=== PATIENT | female | born 1990 | race African-American/Black ===

== ENCOUNTER 2023-02-19 05:45 | Inpatient (IN) | payer OTHER ==
[2023-02-19] MEDS ORDERED: CITRIC ACID/SODIUM CITRATE 30 ML UNIT-DOSE CUP PO ONE (06:25)
[2023-02-19] MEDS ORDERED: ELECTROLYTE-148 SOLN 500 ML IV SCH ×2 (06:25→06:55)
[2023-02-19 06:37] VITALS: BMI 47.2
[2023-02-19] MEDS ORDERED: morphine SULFATE/PF 1 MG/2 ML (2cc Syringe - QUVA) ONE (08:12)
[2023-02-19] MEDS ORDERED: FENTANYL CITRATE/PF 50 MCG/ML VIAL ONE (08:12)
[2023-02-19] MEDS ORDERED: PROPOFOL 20 ML ONE (08:14)
[2023-02-19] MEDS ORDERED: ePHEDrine SULFATE 50 MG/1 ML AMPULE ONE (08:57)
[2023-02-19] MEDS: OXYTOCIN 20 UNITS in 0.9% NS 20 UNIT/1,000 ML INFUS.BAG IV SCH (09:30)
[2023-02-19] MEDS ORDERED: morphine SULFATE/PF 1 MG/2 ML (2cc Syringe - QUVA) EP ONE (09:55)
[2023-02-19] MEDS ORDERED: ACETAMINOPHEN 1000 MG/100 ML BAG IVPB ONE (09:56)
[2023-02-19] MEDS ORDERED: SIMETHICONE 80 MG TAB.CHEW (FP) PO PRN (10:03)
[2023-02-19] MEDS ORDERED: IBUPROFEN 600 MG TABLET (FP) PO PRN (10:03)
[2023-02-19] MEDS ORDERED: IBUPROFEN 800 MG/8 ML IJ IVPB PRN (10:03)
[2023-02-19] MEDS ORDERED: ACETAMINOPHEN 325 MG TABLET (FP) PO PRN (10:03)
[2023-02-19] MEDS ORDERED: SENNOSIDES/DOCUSATE COMBO (SENNA PLUS) TABLET (UD) PO PRN (10:03)
[2023-02-19] MEDS ORDERED: ACETAMINOPHEN 1000 MG/100 ML BAG IVPB PRN (10:07)
[2023-02-19] MEDS ORDERED: DEXTROSE 5%-LACTATED RINGERS 1,000 ML IV SCH (10:15)
[2023-02-19] MEDS ORDERED: OXYTOCIN 20 UNITS in 0.9% NS 20 UNIT/1,000 ML INFUS.BAG IV ONE (10:47)
[2023-02-19] MEDS ORDERED: ONDANSETRON 4 MG/2 ML VIAL ONE (11:46)
[2023-02-19] MEDS ORDERED: KETOROLAC TROMETHAMINE 30 MG/1 ML VIAL ONE (11:46)
[2023-02-19] MEDS ORDERED: OXYTOCIN 10 UNITS/ML VIAL ONE ×2 (11:46→12:11)
[2023-02-19] MEDS ORDERED: ceFAZolin SODIUM 1 GM VIAL ONE (11:46)
[2023-02-19] MEDS ORDERED: OXYTOCIN 10 UNITS/ML VIAL IM ONE (12:15)
[2023-02-19 12:45] LABS: HEMOGLOBIN 7.3 GM/dL (10.7-15.3); MCH 20.3 pg (25.7-33.7); MCHC 30.3 g/dl (32.0-36.0); MEAN PLT VOLUME 8.2 fl (7.5-11.1); PLATELET COUNT 225 10^3/uL (134-434); RBC 3.58 M/mm3 (3.60-5.2); RDW 22.5 % (11.6-15.6); WHITE BLOOD COUNT 12.6 K/mm3 (4.0-10.0)
[2023-02-19 12:48] LABS: INR 1.11 (0.83-1.09); PROTHROMBIN TIME (PATIENT) 12.9 SEC (9.7-13.0)
[2023-02-19] MEDS: METHYLERGONOVINE MALEATE 0.2 MG/1 ML AMP IM PRN ×2 (12:55→17:42)
[2023-02-19 13:01] LABS: POTASSIUM 3.7 mmol/L (3.5-5.1)
[2023-02-19 13:04] LABS: BLOOD UREA NITROGEN 5.9 mg/dL (7-18); CALCIUM 8.4 mg/dL (8.5-10.1)
[2023-02-19 13:07] LABS: CREATININE 0.6 mg/dL (0.55-1.3)
[2023-02-19 13:08] LABS: TOT PROT 5.5 g/dl (6.4-8.2)
[2023-02-19 13:09] LABS: BILIRUBIN,TOTAL 0.2 mg/dL (0.2-1)
[2023-02-19] MEDS: ACETAMINOPHEN 1000 MG/100 ML BAG IVPB SCH ×2 (17:40→23:32)
[2023-02-19] MEDS: METHYLERGONOVINE MALEATE 0.2 MG/1 ML AMP IM SCH ×2 (19:54→23:33)
[2023-02-19] MEDS: FERROUS SO4 325 MG TABLET (FP) PO SCH (22:00)
[2023-02-20] MEDS: METHYLERGONOVINE MALEATE 0.2 MG/1 ML AMP IM SCH ×2 (03:58→08:30)
[2023-02-20] MEDS: OXYTOCIN 20 UNITS in 0.9% NS 20 UNIT/1,000 ML INFUS.BAG IV SCH ×2 (03:58→19:00)
[2023-02-20] MEDS ORDERED: ACETAMINOPHEN INJECTION 100 ML IVPB ONE (05:25)
[2023-02-20] MEDS: ACETAMINOPHEN 1000 MG/100 ML BAG IVPB SCH ×2 (05:29→10:37)
[2023-02-20 08:17] LABS: WHITE BLOOD COUNT 14.2 K/mm3 (4.0-10.0)
[2023-02-20 08:18] LABS: BASO % 0.2 % (0-2.0); EOS % 0.4 % (0-4.5); HEMATOCRIT 22.4 % (32.4-45.2); HEMOGLOBIN 7.4 GM/dL (10.7-15.3); LYMPH % 12.8 % (8-40); MCH 23.2 pg (25.7-33.7); MCHC 33.3 g/dl (32.0-36.0); MEAN CELL VOLUME 69.8 fl (80-96); MEAN PLT VOLUME 9.1 fl (7.5-11.1); MONO % 11.4 % (3.8-10.2); NEUT % 75.2 % (42.8-82.8); PLATELET COUNT 149 10^3/uL (134-434); RDW 22.5 % (11.6-15.6)
[2023-02-20 09:17] LABS: ANISOCYTOSIS 2+; MACROCYTOSIS 1+
[2023-02-20] MEDS ORDERED: BISACODYL 10 MG SUPP.RECT RC PRN (10:03)
[2023-02-20] MEDS ORDERED: ACETAMINOPHEN 1000 MG/100 ML BAG IVPB PRN (10:33)
[2023-02-20] MEDS ORDERED: IBUPROFEN 800 MG/8 ML IJ IVPB PRN (10:34)
[2023-02-20] MEDS ORDERED: DEXTROSE 5%-LACTATED RINGERS 1,000 ML IV SCH (10:45)
[2023-02-20] MEDS ORDERED: LACTATED RINGERS SOLUTION 1,000 ML/1,000 ML INFUS.BAG IV SCH (10:45)
[2023-02-20] MEDS: METHYLERGONOVINE MALEATE 0.2 MG TABLET (FP) PO SCH ×3 (13:04→23:33)
[2023-02-20] MEDS: PRENATAL VITAMINS W/ FOLIC ACID TABLET (FP) PO SCH (14:57)
[2023-02-20] MEDS: FERROUS SO4 300 MG/5 ML ORAL SOLN UNIT DOSE CUPS PO SCH ×2 (15:04→21:24)
[2023-02-20] MEDS: FERROUS SO4 325 MG TABLET (FP) PO SCH (18:59)
[2023-02-20] MEDS: oxyCODONE HCL 5 MG TABLET PO PRN ×2 (19:26→23:33)
[2023-02-20] MEDS ORDERED: oxyCODONE HCL 5 MG TABLET PO ONE (21:30)
[2023-02-20] MEDS ORDERED: ACETAMINOPHEN 325 MG TABLET (FP) PO PRN (23:00)
[2023-02-21] MEDS: ONDANSETRON 4 MG/2 ML VIAL IVPUSH PRN ×2 (01:07→05:50)
[2023-02-21] MEDS: METHYLERGONOVINE MALEATE 0.2 MG TABLET (FP) PO SCH (06:00)
[2023-02-21] MEDS ORDERED: ONDANSETRON 4 MG/2 ML VIAL IVPB PRN (08:07)
[2023-02-21] MEDS ORDERED: DEXTROSE 5%-LACTATED RINGERS 1,000 ML IV SCH (08:15)
[2023-02-21] MEDS: ACETAMINOPHEN 650 MG/20.3 ML ORAL SOLUTION (CUPS) PO SCH ×3 (09:40→17:53)
[2023-02-21] MEDS: oxyCODONE HCL 5 MG TABLET PO PRN ×2 (09:41→17:52)
[2023-02-21] MEDS: FERROUS SO4 300 MG/5 ML ORAL SOLN UNIT DOSE CUPS PO SCH ×2 (09:42→21:41)
[2023-02-21] MEDS: PRENATAL VITAMINS W/ FOLIC ACID TABLET (FP) PO SCH (09:44)
[2023-02-21] MEDS ORDERED: IBUPROFEN 100 MG/5 ML UNIT DOSE CUPS PO PRN (21:48)
[2023-02-21 23:00] VITALS: RESP 18
[2023-02-22] MEDS: ACETAMINOPHEN 650 MG/20.3 ML ORAL SOLUTION (CUPS) PO SCH ×3 (00:05→12:35)
[2023-02-22] MEDS: FERROUS SO4 300 MG/5 ML ORAL SOLN UNIT DOSE CUPS PO SCH (09:51)
[2023-02-22 11:22] VITALS: BP 126/84; PULSE 90; TEMP 98.1
== END 2023-02-22 14:20 | disposition home or self-care (01) | DRG 788 ==
LOC: JLDR 05:45 → J3W 11:00
PROVIDERS: ADMIT Obstetrics & Gynecology; ATTEND Obstetrics & Gynecology
PROC: 10D00Z1 Extraction of Products of Conception, Low, Open Approach (ICD-10-PCS; principal; 2023-02-19)
PROC: 30233N1 Transfusion of Nonautologous Red Blood Cells into Peripheral Vein, Percutaneous Approach (ICD-10-PCS; 2023-02-19)
DX: O32.1XX0 Maternal care for breech presentation, not applicable or unspecified (principal); O34.211 Maternal care for low transverse scar from previous cesarean delivery; O90.89 Other complications of the puerperium, not elsewhere classified; R00.0 Tachycardia, unspecified; R42 Dizziness and giddiness; I95.9 Hypotension, unspecified; Q77.4 Achondroplasia; Z3A.37 37 weeks gestation of pregnancy; Z37.0 Single live birth
CPT/HCPCS: 36415; 36430; 80053; 85025; 85027; 85610; 86850; 86900; 86901; 86922; 88307-TC; 93005; 93010; 94010; P9038; P9058

== ENCOUNTER 2023-07-14 10:08 | Observation (INO) | payer OTHER ==
[2023-07-14] MEDS ORDERED: KETOROLAC TROMETHAMINE 30 MG/1 ML VIAL IM ONE (11:10)
[2023-07-14] MEDS ORDERED: KETOROLAC TROMETHAMINE 30 MG/1 ML VIAL ONE (11:46)
[2023-07-14 11:47] LABS: BASO % 0.8 % (0-2.0); EOS % 0.9 % (0-4.5); HEMATOCRIT 37.2 % (32.4-45.2); HEMOGLOBIN 11.8 GM/dL (10.7-15.3); LYMPH % 25.6 % (8-40); MCH 20.1 pg (25.7-33.7); MCHC 31.8 g/dl (32.0-36.0); MEAN CELL VOLUME 63.1 fl (80-96); MEAN PLT VOLUME 8.7 fl (7.5-11.1); MONO % 7.1 % (3.8-10.2); NEUT % 65.6 % (42.8-82.8); PLATELET COUNT 325 10^3/uL (134-434); RDW 23.3 % (11.6-15.6); WHITE BLOOD COUNT 7.2 K/mm3 (4.0-10.0)
[2023-07-14 11:54] LABS: EPI CELLS >36 /uL (0-25.1); HCG,QUALITATIVE URINE Negative; HYALINE CASTS 10 /uL (0-3.1); PH,URINE 5.5 (5.0-8.0); URINE APPEARANCE CLOUDY; URINE BACTERIA 843 /uL (0-1359); URINE BILIRUBIN NEGATIVE (NEGATIVE); URINE COLOR YELLOW; URINE GLUCOSE (UA) NEGATIVE (NEGATIVE); URINE KETONE 1+ (NEGATIVE); URINE LEUK ESTERASE TRACE (NEGATIVE); URINE NITRITE NEGATIVE (NEGATIVE); URINE PROTEIN 1+ (NEGATIVE); URINE RBC 23 /uL (0-23.9); URINE WBC 76 /uL (0-25.8)
[2023-07-14 12:02] LABS: POTASSIUM 5.3 mmol/L (3.5-5.1)
[2023-07-14 12:05] LABS: CALCIUM 9.3 mg/dL (8.5-10.1)
[2023-07-14 12:06] LABS: ALBUMIN 3.7 g/dl (3.4-5.0); BLOOD UREA NITROGEN 8.8 mg/dL (7-18); MAGNESIUM 2.1 mg/dL (1.8-2.4)
[2023-07-14 12:09] LABS: CREATININE 0.6 mg/dL (0.55-1.3)
[2023-07-14 12:12] LABS: BILIRUBIN,TOTAL 0.6 mg/dL (0.2-1); TOT PROT 9.1 g/dl (6.4-8.2)
[2023-07-14 12:22] LABS: ANISOCYTOSIS 3+; MACROCYTOSIS 1+
[2023-07-14] MEDS ORDERED: ACETAMINOPHEN 500 MG TABLET (FP) PO PRN (15:28)
[2023-07-14] MEDS ORDERED: LIDOCAINE 4% PATCH TP ONE ×2 (15:39→16:22)
[2023-07-14 15:54] LABS: CALCIUM 9.7 mg/dL (8.5-10.1)
[2023-07-14 15:55] LABS: BLOOD UREA NITROGEN 10.7 mg/dL (7-18)
[2023-07-14 15:58] LABS: CREATININE 0.7 mg/dL (0.55-1.3)
[2023-07-14] MEDS ORDERED: KETOROLAC TROMETHAMINE 15 MG/ML VIAL ONE ×2 (16:22→19:52)
[2023-07-14] MEDS ORDERED: GABAPENTIN 100 MG CAPSULE ONE ×3 (16:22→21:04)
[2023-07-14] MEDS: KETOROLAC TROMETHAMINE 15 MG/ML VIAL IVPUSH PRN ×2 (16:28→19:55)
[2023-07-14] MEDS: GABAPENTIN 100 MG CAPSULE PO SCH ×3 (16:28→21:14)
[2023-07-14] MEDS ORDERED: ACETAMINOPHEN 500 MG TABLET (FP) ONE (21:06)
[2023-07-14] MEDS ORDERED: LIDOCAINE PATCH REMOVAL MC SCH (22:00)
[2023-07-15] MEDS ORDERED: morphine CARPU-JECT 2 MG/1 ML DISP.SYRIN IVPUSH ONE (02:03)
[2023-07-15] MEDS ORDERED: HYDROmorphone HCl 2 MG/ML VIAL IVPUSH ONE (04:32)
[2023-07-15] MEDS ORDERED: amLODIPine BESYLATE 5 MG TABLET (FP) PO ONE (07:01)
[2023-07-15] MEDS: GABAPENTIN 100 MG CAPSULE PO SCH (07:15)
[2023-07-15 11:08] VITALS: RESP 18; BMI 40.5
[2023-07-15] MEDS ORDERED: GABAPENTIN 100 MG CAPSULE PO SCH (11:26)
[2023-07-15] MEDS ORDERED: DEXAMETHASONE SOD PHOSPHATE 10 MG/1 ML VIAL IVPUSH ONE (11:45)
[2023-07-15] MEDS ORDERED: ACETAMINOPHEN 1000 MG/100 ML BAG IVPB SCH (12:00)
[2023-07-15 14:34] VITALS: BP 127/85; PULSE 101; TEMP 98.5
[2023-07-15] MEDS ORDERED: NAPROXEN 250 MG TABLET PO SCH (22:00)
== END 2023-07-15 17:19 | disposition short-term general hospital (02) ==
LOC: JER 10:08 → JERBED 15:10 → J6S 07-15 06:19
PROVIDERS: ADMIT Internal Medicine; ATTEND Internal Medicine
PROC: 3E033NZ Introduction of Analgesics, Hypnotics, Sedatives into Peripheral Vein, Percutaneous Approach (ICD-10-PCS; principal; 2023-07-14)
PROC: 3E033GC Introduction of Other Therapeutic Substance into Peripheral Vein, Percutaneous Approach (ICD-10-PCS; 2023-07-14)
PROC: 3E0233Z Introduction of Anti-inflammatory into Muscle, Percutaneous Approach (ICD-10-PCS; 2023-07-14)
PROC: 3E0333Z Introduction of Anti-inflammatory into Peripheral Vein, Percutaneous Approach (ICD-10-PCS; 2023-07-14)
DX: M54.16 Radiculopathy, lumbar region (principal); R26.2 Difficulty in walking, not elsewhere classified; E34.328 Other genetic causes of short stature; M48.00 Spinal stenosis, site unspecified; M62.81 Muscle weakness (generalized); R20.0 Anesthesia of skin
CPT/HCPCS: 36415; 72131-TC; 72148-TC; 80048; 80053; 81003; 83735; 84703; 85025; 99285-25; G0378; J1100

== ENCOUNTER 2023-08-25 22:37 | Emergency (ER) | payer OTHER ==
[2023-08-25 22:45] VITALS: BMI 38.5
[2023-08-25 23:47] LABS: EPI CELLS 1 /uL (0-25.1); HYALINE CASTS 0 /uL (0-3.1); PH,URINE 8.5 (5.0-8.0); URINE APPEARANCE TURBID; URINE BACTERIA >9,000 /uL (0-1359); URINE BILIRUBIN NEGATIVE (NEGATIVE); URINE COLOR YELLOW; URINE GLUCOSE (UA) NEGATIVE (NEGATIVE); URINE KETONE NEGATIVE (NEGATIVE); URINE LEUK ESTERASE 3+ (NEGATIVE); URINE NITRITE NEGATIVE (NEGATIVE); URINE PROTEIN 3+ (NEGATIVE); URINE RBC 700 /uL (0-23.9); URINE UROBILINOGEN 0.2 mg/dL (0.2-1.0); URINE WBC 18764 /uL (0-25.8)
[2023-08-26 01:07] VITALS: BP 121/58; PULSE 104; RESP 18; TEMP 98.3
== END 2023-08-26 02:22 | disposition home or self-care (01) ==
LOC: JER 22:37
PROC: 0T9B70Z Drainage of Bladder with Drainage Device, Via Natural or Artificial Opening (ICD-10-PCS; principal; 2023-08-25)
DX: T83.098A Other mechanical complication of other urinary catheter, initial encounter (principal); R33.9 Retention of urine, unspecified; N39.0 Urinary tract infection, site not specified; R10.30 Lower abdominal pain, unspecified; R00.0 Tachycardia, unspecified; Y83.1 Surgical operation with implant of artificial internal device as the cause of abnormal reaction of the patient, or of later complication, without mention of misadventure at the time of the procedure
CPT/HCPCS: 81003; 87086; 87186; 93005; 93010; 99284-25

== ENCOUNTER 2023-11-09 00:20 | Emergency (ER) | payer OTHER ==
[2023-11-09 00:37] VITALS: BP 160/100; PULSE 107; RESP 18; TEMP 98.5; BMI 39.4
[2023-11-09 02:10] LABS: EPI CELLS 1 /uL (0-25.1); HYALINE CASTS 0 /uL (0-3.1); PH,URINE 5.5 (5.0-8.0); URINE APPEARANCE CLEAR; URINE BACTERIA 3330 /uL (0-1359); URINE BILIRUBIN NEGATIVE (NEGATIVE); URINE COLOR YELLOW; URINE GLUCOSE (UA) NEGATIVE (NEGATIVE); URINE KETONE NEGATIVE (NEGATIVE); URINE LEUK ESTERASE 1+ (NEGATIVE); URINE NITRITE NEGATIVE (NEGATIVE); URINE PROTEIN NEGATIVE (NEGATIVE); URINE RBC 344 /uL (0-23.9); URINE UROBILINOGEN 0.2 mg/dL (0.2-1.0); URINE WBC 113 /uL (0-25.8)
== END 2023-11-09 02:34 | disposition home or self-care (01) ==
LOC: FER 00:20
PROC: 0T2BX0Z Change Drainage Device in Bladder, External Approach (ICD-10-PCS; principal; 2023-11-09)
DX: R10.30 Lower abdominal pain, unspecified (principal); R14.0 Abdominal distension (gaseous); T83.9XXA Unspecified complication of genitourinary prosthetic device, implant and graft, initial encounter
CPT/HCPCS: 81003; 87086; 99283-25